=== PATIENT | female | born 1980 | race Caucasian/White ===

== ENCOUNTER 2020-09-04 03:56 | Inpatient (IN) ==
[2020-09-04] MEDS ORDERED: OXYTOCIN 30 UNITS/500 ML BAG IV PRN ×3 (05:34→18:24)
[2020-09-04 06:31] LABS: Hematocrit (blood only) 36.1 % (37-47); Hemoglobin 12.7 g/dL (12.0-16.0); Mean Corpuscular Hemoglobin 32.2 pg (25-34); Mean Corpuscular Hgb Conc 35.2 g/dL (32-36); Mean Corpuscular Volume 91.4 fL (80-100); Mean Platelet Volume 11.7 fL (7.4-10.4); Platelet Count 194 K/uL (130-400); RDW Coefficient of Variation 13.3 % (11.5-14.5); RDW Standard Deviation 44.3 fL (36.4-46.3); Red Blood Count 3.95 M/uL (4.2-5.4)
--- NOTE | 2020-09-04 06:31 | History & Physical Report ---
Date of Service September 04, 2020 Assessment & Plan (1) IUFD at 20 weeks or more of gestation: Admission and Anticipated Discharge Date Admission Date: September 04, 2020 Patient is a 40yowf with iup at 38 1/7 weeks by lmp and consistent with third trimester ultrasound who presents to labor and delivery with decreased FM. IUFD confirmed by formal ultrasound and M-mode. This is the patient's first with this new FOB. Other than AMA, no significant risk factors for IUFD--however, incomplete testing in (no gtt, no rpr, hepb, hiv, etc). Explained the diagnosis to the patient and her FOB. Her NM is here as well. Discussed evaluation for cause including amnio for genetics, genetics with placental tissues, placental evaluation, autopsy. Patient declines amnio at this point and is considering other options. Discussed that complete w/u may reveal a cause, but that frequently, no cause is ascertained. Patient and fob express understanding of this. Cervix is unfavorable, so plan cytotec for ripening and then pitocin and arom as indicated. Patient desires epidural for pain management. Appropriate lab work obtained to complete pnl and to try to determine potential cause--A1C, parvo, rpr, lac, acla, TSH. Her blood sugar on admission is 98. Explained the situation to the best of my ability and questions answered to the best of my ability. History of Present Illness Chief Complaint: decreased movment. Primary Care Provider: NO PCP Patient is a 40yowf with lmp of 12/12/19 for edc of 12/18/20. Patient has been cared for by a nurse child care attendant school for this and planned a home delivery. She presented to the hospital tonight, unannounced, noting decreased movement. She notes the last time she felt the baby move was around 7:30- 8pm last night. She had not really noted decreased movement until Sat. She notes baby moving fine on Saturday. Was very busy on Saturday and noted some movement. Went to bed and woke up about MN. Tried everything she could think of to get the baby to move and nothing worked and she came to the hospital. Per her report , the has been straight forward. She is ama. No genetic testing. US done at [facility] on 05/20 and s=d, all visualized but the spine suboptimally seen, cord insertion suboptimally seen, nose/lips suboptimally seen. efw 60%. limited anatomy as multiple images could not be obtained due to position. f/u recommended but not obtained. PNR available. Blood type B+, ab-, ua nl, cbc nl. Patient and nmw noted that there was "an issues with the blood tubes" and the rest of the lab work was not done. they decided not to redraw as very low risk for other labs being abnl. Patient declined gtt at 22 week. She notes that at about 23 weeks she did fingerstick blood sugars about 30 min after meals and remembers them being in about the 110s. Did not have any testing for diabetes in this . On history there is no hx of VTE, clots, clotting d/o, congenital abnl or chromosomal abnl. There is no maternal DM, VTE, HTN, epilepsy, heart disease. Patient declines tobacco , etoh drug use. Patient has hx of one early miscarriage and two vaginal deliveries. she notes no previous associated issues. Patient denies any hx of illness in the . she has had some spotting after intercourse in the but no other bleeding. Denies bleeding and lof at this point. Notes intermittent contractions . Patient notes she has taken lexapro in the , but has not taken for 2-3 months. Allergies Allergy/AdvReac Type Severity Reaction Status Date / Time No Known Allergies Allergy Unverified 02/08/14 02:01 Home Medications Medication Instructions Recorded Confirmed Type escitalopram oxalate 20 mg tablet 20 mg PO DAILY #90 tab 01/19/20 Rx Patient History Medical History Depression with anxiety Eczema Migraine headache Surgical History No pertinent past surgical history Family History Grandfather (Maternal) Colorectal cancer Grandmother (Maternal) Diabetes Uterine cancer Social History Smoking Status: Never smoker Hx Alcohol Use: Yes (social) Hx Substance Use: No marital status: current occupational status: employed OB History g1--02/04, , hospital, female 8#8oz, 39 4/7 G2--12/07--sab G3--09/07, , [place] breech, home delivery, 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 Subsequent testing in negative. hx of abnl pap and colpo in about 2009, has had nl pap since , but cannot remember her last pap. Review of Systems All systems reviewed & are unremarkable except as noted in HPI & below Physical Exam Constitutional: WD/WN, vitals as above Neck: trachea midline, no thyromegaly Respiratory: normal respiratory effort, lungs clear to auscultation Cardiovascular: RRR, no murmur, no edema Gastrointestinal (Abdomen): soft, gravid, nt Neurologic: patellar DTR's 2+ bilat, sensation intact Psychiatric: A+Ox3, euthymic affect Genitourinary: cx--07/18/-3/mid/mod toco--not traced yet efm--unable to obtain US--no heart motion noted on formal ultrasound Results & Data ([facility]) Vital Signs (Past 12 Hours) Vital Signs Pulse BP Pulse Ox 09/04/20 04:53 93 H 141/89 H 09/04/20 04:29 91 H 99 09/04/20 04:19 94 H 98 Code Status & VTE Plan VTE Prophylaxis Plan VTE Prophylaxis will be ordered: No Coding Level of Care Code None Diagnoses IUFD at 20 weeks or more of gestation O36.4XX0
[2020-09-04] MEDS: LACTATED RINGER'S 1,000 ML IV PRN ×3 (07:45→17:08)
[2020-09-04] MEDS ORDERED: ePHEDrine sulfate 50 MG/ML AMP ONE (08:07)
[2020-09-04] MEDS ORDERED: SODIUM CHLORIDE 0.9% INJ 10 ML VIAL ONE (08:07)
[2020-09-04] MEDS ORDERED: BUPIVACAINE 0.25% 30 ML VIAL ONE (08:08)
[2020-09-04] MEDS ORDERED: fentaNYL citrate 100 MCG/2 ML VIAL ONE (08:08)
[2020-09-04] MEDS ORDERED: fentaNYL 2MCG/ML ROPIVACAINE 1.25MG/ML 100 ML BAG EPI ONE (08:08)
--- NOTE | 2020-09-04 08:08 | Ultrasound Report ---
ULTRASOUND LIMITED CLINICAL HISTORY: Decreased movement. Reportedly 38 weeks . COMPARISON STUDY: No priors. FINDINGS: Portable real-time, grayscale, and color Doppler sonography was performed to assess decreas ed movement. The ordering physician was present during the examination. There is a single intra uterine gestation in cephalic position. No movement was seen and no cardiac activity is identif ied. Findings are consistent with demise. The placenta is anterior. Only trace amniotic fluid i s identified. IMPRESSION: Findings are consistent with demise. Electronically signed by: Cooper Villatoro M.D. 09/04/2020 8:07 AM
--- NOTE | 2020-09-04 08:56 | Anesthesiology Consultation ---
Date of Service September 04, 2020 Assessment & Plan Chart Review Chart Review: Acceptable Risk for Labor Epidural Consults Requested none History Height/Weight Height: 5 ft 4 in Weight: 98.43 kg Allergies Allergy/AdvReac Type Severity Reaction Status Date / Time No Known Allergies Allergy Unverified 02/08/14 02:01 Medications Home Medications Medication Instructions Recorded Confirmed Last Taken escitalopram oxalate 20 mg tablet 20 mg PO DAILY #90 tab 01/19/20 Unknown Active Medications Generic Name Dose Route Start Last Admin Trade Name Freq PRN Reason Stop Dose Admin Lactated Ringer's 1,000 mls @ 125 mls/hr 09/04/20 05:34 09/04/20 08:00 Lr IV 09/06/20 05:33 999 mls/hr .Q8H PRN Infusion L&D Protocol Protocol Oxytocin 30 units in 500 mls @ 1 mls/hr 09/04/20 07:03 09/04/20 08:10 Pitocin IV 09/06/20 07:02 0.06 units/hr .Q24H PRN 1 mls/hr Labor Induction/Augmentation Administration Protocol 0.06 UNITS/HR Past Medical History Medical History Depression with anxiety Eczema Migraine headache Past Family History Family History Grandfather (Maternal) Colorectal cancer Grandmother (Maternal) Diabetes Uterine cancer Past Surgical History Surgical History No pertinent past surgical history Social History Smoking Status: Never smoker Do You Dip or Chew Tobacco: No Hx Alcohol Use: No Hx Substance Use: No substance use type: does not use Physical Exam Vital Signs Last Vital Signs Temp 36.7 C 09/04/20 08:18 Pulse 112 H 09/04/20 08:53 Resp 18 09/04/20 08:18 BP 127/79 09/04/20 08:53 Pulse Ox 100 09/04/20 08:53 Testing Laboratory Results 09/04/20 05:57 Blood Type B Positive 09/04/20 05:57 Antibody Screen NEGATIVE 09/04/20 05:57 09/04/20 06:07 POC Glucose 98
[2020-09-04] MEDS ORDERED: miSOPROStoL 25 MCG TAB PV SCH (09:00)
[2020-09-04] MEDS ORDERED: diphenhydrAMINE 50 MG/ML VIAL IV PRN (09:00)
[2020-09-04] MEDS ORDERED: ePHEDrine sulfate 50 MG/ML AMP IV PRN (09:00)
[2020-09-04] MEDS ORDERED: fentaNYL 2MCG/ML ROPIVACAINE 1.25MG/ML 100 ML BAG EPI PRN (09:00)
[2020-09-04] MEDS ORDERED: NALOXONE HCL 0.4 MG/1 ML VIAL/CARP IV PRN (09:00)
[2020-09-04] MEDS ORDERED: NALOXONE HCL 1 MG in SODIUM CHLORIDE 0.9% 1000ML 1,000 ML IV PRN (09:00)
[2020-09-04 11:36] LABS: Hepatitis B Surf Ag Rflx Conf Neg (Neg); Rubella IgG Antibody Immune (Immune)
--- NOTE | 2020-09-04 11:57 | Labor Progress Brief Note ---
Date of Service September 04, 2020 Subjective comfortable with epidural Assessment & Plan (1) IUFD at 20 weeks or more of gestation: Admission and Anticipated Discharge Date Admission Date: September 04, 2020 continue current management. Patient tolerating well. Physical Exam Constitutional: WD/WN, vitals as above Psychiatric: A+Ox3, euthymic affect Genitourinary: cx--/50/-2 attempt at arom--small amount of clear fluid toco-q3-4, pit at 13 Results & Data ([facility]) Vital Signs (Past 12 Hours) Vital Signs Temp Pulse Resp BP Pulse Ox 09/04/20 11:53 107 H 99 09/04/20 11:48 81 99 09/04/20 11:47 93 H 123/80 09/04/20 11:43 95 H 99 09/04/20 11:38 97 H 99 09/04/20 11:33 106 H 98 09/04/20 11:28 90 98 09/04/20 11:23 96 H 99 09/04/20 11:18 83 121/78 99 09/04/20 11:13 90 99 09/04/20 11:08 96 H 99 09/04/20 11:03 89 99 09/04/20 10:58 84 98 09/04/20 10:53 85 97 09/04/20 10:48 97 H 99 09/04/20 10:47 87 118/74 09/04/20 10:43 86 97 09/04/20 10:38 90 99 09/04/20 10:33 82 98 09/04/20 10:28 77 98 09/04/20 10:23 97 H 97 09/04/20 10:18 129 H 100 09/04/20 10:17 90 140/100 09/04/20 10:13 93 H 99 09/04/20 10:08 81 100 09/04/20 10:03 91 H 99 09/04/20 09:58 88 100 09/04/20 09:53 91 H 99 09/04/20 09:48 96 H 121/70 98 09/04/20 09:43 96 H 99 09/04/20 09:38 88 100 09/04/20 09:33 105 H 100 09/04/20 09:28 89 99 09/04/20 09:23 86 98 09/04/20 09:18 105 H 99 09/04/20 09:16 88 130/68 09/04/20 09:13 106 H 99 09/04/20 09:11 99 H 125/65 09/04/20 09:08 103 H 100 09/04/20 09:06 99 H 129/73 09/04/20 09:03 107 H 98 09/04/20 09:02 116 H 137/76 09/04/20 08:58 105 H 99 09/04/20 08:56 103 H 133/80 09/04/20 08:53 112 H 127/79 100 09/04/20 08:51 121 H 135/86 09/04/20 08:50 108 H 134/82 09/04/20 08:48 101 H 99 09/04/20 08:47 110 H 120/76 09/04/20 08:44 90 126/78 09/04/20 08:43 100 H 100 09/04/20 08:41 94 H 125/80 09/04/20 08:38 97 H 100 09/04/20 08:33 101 H 100 09/04/20 08:28 94 H 100 09/04/20 08:23 87 100 09/04/20 08:18 36.7 C 93 H 18 143/87 H 100 09/04/20 08:00 18 09/04/20 06:13 36.7 C 18 09/04/20 04:53 93 H 141/89 H 09/04/20 04:29 91 H 99 09/04/20 04:19 94 H 98 Coding Level of Care Code None Diagnoses IUFD at 20 weeks or more of gestation O36.4XX0
[2020-09-04] MEDS ORDERED: ACETAMINOPHEN 325 MG TAB PO ONE ×2 (12:11→16:12)
[2020-09-04] MEDS ORDERED: ACETAMINOPHEN 325 MG TAB ONE ×2 (12:16→16:10)
--- NOTE | 2020-09-04 13:12 | Labor Progress Brief Note ---
Date of Service September 04, 2020 Subjective still fairly comfortable Assessment & Plan (1) IUFD at 20 weeks or more of gestation: Admission and Anticipated Discharge Date Admission Date: September 04, 2020 continue current management. oligo noted on my ultrasound. Patient is not wanting to do an autopsy. she is agreeable to placenta studies and placental tissue to try to obtain chromosomes. Physical Exam Constitutional: WD/WN, vitals as above Psychiatric: A+Ox3, euthymic affect Genitourinary: cx--4/75/-2 toco--q2-4min, pit at 13 minimal fluid noted, attempt at another arom, no fluid noted US--cephalic, essentially no fluid noted on ultrasound Results & Data ([facility]) Vital Signs (Past 12 Hours) Vital Signs Temp Pulse Resp BP Pulse Ox 09/04/20 13:03 101 H 98 09/04/20 12:58 100 H 98 09/04/20 12:53 84 97 09/04/20 12:48 97 H 98 09/04/20 12:47 116 H 144/97 H 09/04/20 12:43 93 H 98 09/04/20 12:38 89 98 09/04/20 12:33 83 99 09/04/20 12:28 86 97 09/04/20 12:23 86 97 09/04/20 12:18 93 H 99 09/04/20 12:17 88 120/78 09/04/20 12:15 18 09/04/20 12:13 94 H 98 09/04/20 12:08 85 98 09/04/20 12:04 37.3 C 18 09/04/20 12:03 97 H 99 09/04/20 11:58 95 H 100 09/04/20 11:53 107 H 99 09/04/20 11:48 81 99 09/04/20 11:47 93 H 123/80 09/04/20 11:43 95 H 99 09/04/20 11:38 97 H 99 09/04/20 11:33 106 H 98 09/04/20 11:28 90 98 09/04/20 11:23 96 H 99 09/04/20 11:18 83 121/78 99 09/04/20 11:15 18 09/04/20 11:13 90 99 09/04/20 11:08 96 H 99 09/04/20 11:03 89 99 14/21 10:58 84 98 14/21 10:53 85 97 09/04/21 10:48 97 H 99 14/21 10:47 87 118/74 09/04/20 10:43 86 97 09/04/21 10:38 90 99 21 10:33 82 98 14/21 10:28 77 98 09/04/20 10:23 97 H 97 09/04/20 10:18 129 H 100 09/04/20 10:17 90 140/100 09/04/20 10:15 18 09/04/20 10:13 93 H 99 09/04/20 10:08 81 100 09/04/20 10:03 91 H 99 09/04/20 09:58 88 100 09/04/20 09:53 91 H 99 09/04/20 09:48 96 H 121/70 98 09/04/20 09:43 96 H 99 09/04/20 09:38 88 100 09/04/20 09:33 105 H 100 09/04/20 09:28 89 99 09/04/20 09:23 86 98 09/04/20 09:18 105 H 99 09/04/20 09:16 88 130/68 09/04/20 09:13 106 H 99 09/04/20 09:11 99 H 125/65 09/04/20 09:08 103 H 100 09/04/20 09:06 99 H 129/73 09/04/20 09:03 107 H 98 09/04/20 09:02 116 H 137/76 09/04/20 08:58 105 H 99 09/04/20 08:56 103 H 133/80 09/04/20 08:53 112 H 127/79 100 09/04/20 08:51 121 H 135/86 14 08:50 108 H 134/82 09/04/20 08:48 101 H 99 09/04/20 08:47 110 H 120/76 21 08:44 90 126/78 09/04/20 08:43 100 H 100 1421 08:41 94 H 125/80 14/21 08:38 97 H 100 1421 08:33 101 H 100 09/04/20 08:28 94 H 100 09/04/20 08:23 87 100 09/04/20 08:18 36.7 C 93 H 18 143/87 H 100 09/04/20 08:00 18 09/04/20 06:13 36.7 C 18 09/04/20 04:53 93 H 141/89 H 09/04/20 04:29 91 H 99 09/04/20 04:19 94 H 98 Coding Level of Care Code None Diagnoses IUFD at 20 weeks or more of gestation O36.4XX0
[2020-09-04] MEDS ORDERED: ONDANSETRON INJ 2 MG/ML 2 ML VIAL IV PRN (14:19)
[2020-09-04 16:08] LABS: Amphetamines+Metham, Urine Neg (Neg); Barbiturates, Urine Neg (Neg); Benzodiazepine, Urine Neg (Neg); Cocaine, Urine Neg (Neg); MDMA (Ecstacy), Urine Neg (Neg); Methadone, Urine Neg (Neg); Opiate, Urine Neg (Neg); Phencyclidine, Urine Neg (Neg)
--- NOTE | 2020-09-04 16:12 | Labor Progress Brief Note ---
Date of Service September 04, 2020 Subjective comfortable, grieving appropriately Assessment & Plan (1) IUFD at 20 weeks or more of gestation: Admission and Anticipated Discharge Date Admission Date: September 04, 2020 continue current management. anticipate vaginal delivery. Have been given permission to obtain placenta tissue for chromosomal analysis. Declines tissue or autopsy. Elsa does not want to hold the baby immediately. Plan for me to clamp and cut the cord. Take the baby to warmer, dry and then father desires to hold. Physical Exam Constitutional: WD/WN, vitals as above Psychiatric: A+Ox3, euthymic affect Genitourinary: cx--6-7/100/-1 toco--q2-3min, pit at 15 Results & Data ([facility]) Vital Signs (Past 12 Hours) Vital Signs Temp Pulse Resp BP Pulse Ox 09/04/20 16:03 92 H 99 09/04/20 15:59 93 H 93 09/04/20 15:58 91 H 95 09/04/20 15:53 93 H 100 09/04/20 15:48 92 H 99 09/04/20 15:47 82 133/78 09/04/20 15:43 87 99 09/04/20 15:38 95 H 99 09/04/20 15:34 97 H 90 09/04/20 15:33 89 100 09/04/20 15:28 102 H 100 09/04/20 15:23 84 100 09/04/20 15:18 91 H 131/84 99 09/04/20 15:17 91 H 133/83 09/04/20 15:13 97 H 99 09/04/20 15:08 92 H 99 09/04/20 15:03 99 H 99 09/04/20 14:58 88 98 09/04/20 14:53 86 100 09/04/20 14:48 82 98 09/04/20 14:47 86 111/66 09/04/20 14:43 79 99 09/04/20 14:38 86 99 09/04/20 14:33 81 98 09/04/20 14:28 87 99 09/04/20 14:23 82 99 09/04/20 14:18 93 H 98 09/04/20 14:17 89 130/82 09/04/20 14:13 91 H 97 09/04/20 14:08 83 99 09/04/20 14:03 83 100 09/04/20 13:58 81 99 09/04/20 13:53 80 99 09/04/20 13:48 75 120/77 99 09/04/20 13:43 84 98 09/04/20 13:38 81 99 09/04/20 13:33 86 98 09/04/20 13:28 80 98 09/04/20 13:23 83 98 09/04/20 13:18 82 97 09/04/20 13:17 82 124/78 09/04/20 13:13 81 100 09/04/20 13:08 85 98 09/04/20 13:03 101 H 98 09/04/20 12:58 100 H 98 09/04/20 12:53 84 97 09/04/20 12:48 97 H 98 09/04/20 12:47 116 H 144/97 H 09/04/20 12:43 93 H 98 09/04/20 12:38 89 98 09/04/20 12:33 83 99 09/04/20 12:28 86 97 09/04/20 12:23 86 97 09/04/20 12:18 93 H 99 09/04/20 12:17 88 120/78 09/04/20 12:15 18 09/04/20 12:13 94 H 98 09/04/20 12:08 85 98 09/04/20 12:04 37.3 C 18 09/04/20 12:03 97 H 99 09/04/20 11:58 95 H 100 09/04/20 11:53 107 H 99 09/04/20 11:48 81 99 09/04/20 11:47 93 H 123/80 09/04/20 11:43 95 H 99 09/04/20 11:38 97 H 99 09/04/20 11:33 106 H 98 09/04/20 11:28 90 98 09/04/20 11:23 96 H 99 09/04/20 11:18 83 121/78 99 09/04/20 11:15 18 09/04/20 11:13 90 99 09/04/20 11:08 96 H 99 09/04/20 11:03 89 99 09/04/20 10:58 84 98 09/04/20 10:53 85 97 09/04/20 10:48 97 H 99 09/04/20 10:47 87 118/74 09/04/20 10:43 86 97 09/04/20 10:38 90 99 09/04/20 10:33 82 98 09/04/20 10:28 77 98 09/04/20 10:23 97 H 97 09/04/20 10:18 129 H 100 09/04/20 10:17 90 140/100 09/04/20 10:15 18 09/04/20 10:13 93 H 99 09/04/20 10:08 81 100 09/04/20 10:03 91 H 99 09/04/20 09:58 88 100 09/04/20 09:53 91 H 99 09/04/20 09:48 96 H 121/70 98 09/04/20 09:43 96 H 99 09/04/20 09:38 88 100 09/04/20 09:33 105 H 100 09/04/20 09:28 89 99 09/04/20 09:23 86 98 09/04/20 09:18 105 H 99 09/04/20 09:16 88 130/68 09/04/20 09:13 106 H 99 09/04/20 09:11 99 H 125/65 09/04/20 09:08 103 H 100 09/04/20 09:06 99 H 129/73 09/04/20 09:03 107 H 98 09/04/20 09:02 116 H 137/76 09/04/20 08:58 105 H 99 09/04/20 08:56 103 H 133/80 09/04/20 08:53 112 H 127/79 100 09/04/20 08:51 121 H 135/86 09/04/20 08:50 108 H 134/82 09/04/20 08:48 101 H 99 09/04/20 08:47 110 H 120/76 09/04/20 08:44 90 126/78 09/04/20 08:43 100 H 100 09/04/20 08:41 94 H 125/80 09/04/20 08:38 97 H 100 09/04/20 08:33 101 H 100 09/04/20 08:28 94 H 100 09/04/20 08:23 87 100 09/04/20 08:18 36.7 C 93 H 18 143/87 H 100 09/04/20 08:00 18 09/04/20 06:13 36.7 C 18 09/04/20 04:53 93 H 141/89 H 09/04/20 04:29 91 H 99 09/04/20 04:19 94 H 98 Coding Level of Care Code None Diagnoses IUFD at 20 weeks or more of gestation O36.4XX0
[2020-09-04] MEDS ORDERED: CARBOPROST TROMETHAMINE 250 MCG/ML AMPUL ONE (17:07)
--- NOTE | 2020-09-04 17:32 | Delivery Summary ---
Vaginal Delivery Summary Date of Service September 04, 2020 Pre-operative Diagnosis: at 38 weeks iufd oligohydramnios Post-operative Diagnosis: same Procedure: pitocin induction arom for minimal fluid EBL: 400cc Anesthesia: epidural Procedure: The patient pushed for two contractions to deliver a nonviable female infant in axel position. There was no nuchal cord. The rest of the infant was then delivered without difficulty. Cord was clamped and cut at on the perineum. Placenta delivered spontaneous, intact with a three vessel cord. Cervix/sulci/rectum/perineum were intact. There was no laceration. Hemostasis obtained with dilute pitocin and fundal massage and IM hemabate. Apgars were 0/0. Mother physically well at the end of the delivery. The baby was taken to the warmer where she was wrapped and her father held her. When her towels were changed, it was noted that genitalia were female. 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 The back of the neck may have been fluid filled, difficult to tell that it was not postmortum. There was some peeling of the skin of the lips but for the most part the skin was still intact. the anterior fontanelle was open and flat. Color consistent with recent demise, no modeling or bruising noted. Limbs appeared normal, not misshapen, equal in length. No clubbing of the feet noted. Vaginal Delivery Summary [facility] ([place], [place]) Vaginal Delivery Charge Delivery Type Details: [facility]
[2020-09-04] MEDS ORDERED: ACETAMINOPHEN W/CODEINE #3 1 TAB PO PRN (18:24)
[2020-09-04] MEDS ORDERED: HYDROCORTISONE ACETATE 25 MG SUPP PR PRN (18:24)
[2020-09-04] MEDS ORDERED: BENZOCAINE 20% AER SPR 82.5 GM CAN EXT PRN (18:24)
[2020-09-04] MEDS ORDERED: DIPHTHERIA/TETANUS/PERTUSSIS 0.5 ML SYR/VIAL IM ONE (18:24)
[2020-09-04] MEDS ORDERED: CARBOPROST TROMETHAMINE 250 MCG/ML AMPUL IM ONE (18:24)
[2020-09-04] MEDS ORDERED: bisacodyL 10 MG SUPP PR PRN (18:24)
[2020-09-04] MEDS ORDERED: IBUPROFEN 600 MG TAB PO PRN (18:24)
[2020-09-04] MEDS ORDERED: SUPERCREAM 0.870% 15 GM JAR EXT PRN (18:24)
[2020-09-04] MEDS ORDERED: ACETAMINOPHEN 325 MG TAB PO PRN (18:24)
[2020-09-04] MEDS ORDERED: oxyCODONE/ACETAMINOPHEN 5mg/325mg TAB PO PRN (18:24)
--- NOTE | 2020-09-04 18:30 | Anesthesiology Progress Note ---
Date of Service September 04, 2020 Anesthesia Post Procedure Vital Signs Vital Signs: Temp Pulse Resp BP Pulse Ox 09/04/20 18:17 89 132/70 09/04/20 18:02 96 H 129/70 09/04/20 17:47 94 H 143/88 H 09/04/20 17:16 94 H 136/72 84 L 09/04/20 17:13 105 H 98 09/04/20 17:12 106 H 155/79 H 09/04/20 17:10 104 H 163/84 H 09/04/20 17:08 107 H 150/84 H 99 09/04/20 17:06 120 H 149/87 H 09/04/20 17:03 116 H 99 09/04/20 16:58 113 H 99 09/04/20 16:53 127 H 100 09/04/20 16:48 110 H 99 09/04/20 16:47 115 H 143/83 H 09/04/20 16:43 97 H 100 09/04/20 16:38 116 H 100 09/04/20 16:33 107 H 98 09/04/20 16:28 100 H 100 09/04/20 16:25 36.9 C 18 09/04/20 16:23 96 H 100 09/04/20 16:19 89 92 09/04/20 16:18 87 123/79 100 09/04/20 16:13 97 H 100 09/04/20 16:08 87 99 09/04/20 16:03 92 H 99 09/04/20 15:59 93 H 93 09/04/20 15:58 91 H 95 09/04/20 15:53 93 H 100 09/04/20 15:48 92 H 99 09/04/20 15:47 82 133/78 09/04/20 15:45 18 09/04/20 15:43 87 99 09/04/20 15:38 95 H 99 09/04/20 15:34 97 H 90 09/04/20 15:33 89 100 09/04/20 15:28 102 H 100 09/04/20 15:23 84 100 09/04/20 15:18 91 H 131/84 99 09/04/20 15:17 91 H 133/83 09/04/20 15:15 18 09/04/20 15:13 97 H 99 09/04/20 15:08 92 H 99 09/04/20 15:03 99 H 99 09/04/20 14:58 88 98 09/04/20 14:53 86 100 09/04/20 14:48 82 98 09/04/20 14:47 86 111/66 09/04/20 14:43 79 99 09/04/20 14:38 86 99 09/04/20 14:33 81 98 09/04/20 14:28 87 99 09/04/20 14:23 82 99 09/04/20 14:18 93 H 98 09/04/20 14:17 89 130/82 09/04/20 14:15 18 09/04/20 14:13 91 H 97 09/04/20 14:08 83 99 09/04/20 14:03 83 100 09/04/20 14:00 37.2 C 18 09/04/20 13:58 81 99 09/04/20 13:53 80 99 09/04/20 13:48 75 120/77 99 09/04/20 13:43 84 98 09/04/20 13:38 81 99 09/04/20 13:33 86 98 09/04/20 13:28 80 98 09/04/20 13:23 83 98 09/04/20 13:18 82 97 09/04/20 13:17 82 124/78 09/04/20 13:13 81 100 09/04/20 13:08 85 98 09/04/20 13:03 101 H 98 09/04/20 12:58 100 H 98 09/04/20 12:53 84 97 09/04/20 12:48 97 H 98 09/04/20 12:47 116 H 144/97 H 09/04/20 12:43 93 H 98 09/04/20 12:38 89 98 09/04/20 12:33 83 99 09/04/20 12:28 86 97 09/04/20 12:23 86 97 09/04/20 12:18 93 H 99 09/04/20 12:17 88 120/78 09/04/20 12:15 18 09/04/20 12:13 94 H 98 09/04/20 12:08 85 98 09/04/20 12:04 37.3 C 18 09/04/20 12:03 97 H 99 03/14/21 11:58 95 H 100 /14/21 11:53 107 H 99 14/21 11:48 81 99 03/14/21 11:47 93 H 123/80 09/04/20 11:43 95 H 99 14 11:38 97 H 99 14 11:33 106 H 98 09/04/ 11:28 90 98 14 11:23 96 H 99 09/04/20 11:18 83 121/78 99 14 11:15 18 09/04/20 11:13 90 99 14 11:08 96 H 99 09/04/20 11:03 89 99 09/04/20 10:58 84 98 09/04/20 10:53 85 97 09/04/20 10:48 97 H 99 09/04/20 10:47 87 118/74 09/04/20 10:43 86 97 09/04/20 10:38 90 99 09/04/20 10:33 82 98 09/04/20 10:28 77 98 09/04/20 10:23 97 H 97 09/04/20 10:18 129 H 100 09/04/20 10:17 90 140/100 09/04/20 10:15 18 09/04/20 10:13 93 H 99 09/04/20 10:08 81 100 09/04/20 10:03 91 H 99 09/04/20 09:58 88 100 09/04/20 09:53 91 H 99 09/04/20 09:48 96 H 121/70 98 09/04/20 09:43 96 H 99 09/04/20 09:38 88 100 09/04/20 09:33 105 H 100 09/04/20 09:28 89 99 14/ 09:23 86 98 14/21 09:18 105 H 99 14/21 09:16 88 130/68 14 09:13 106 H 99 14 09:11 99 H 125/65 14/ 09:08 103 H 100 09/04/20 09:06 99 H 129/73 14/ 09:03 107 H 98 09/04/20 09:02 116 H 137/76 09/04/20 08:58 105 H 99 09/04/20 08:56 103 H 133/80 09/04/20 08:53 112 H 127/79 100 09/04/20 08:51 121 H 135/86 09/04/20 08:50 108 H 134/82 09/04/20 08:48 101 H 99 09/04/20 08:47 110 H 120/76 09/04/20 08:44 90 126/78 09/04/20 08:43 100 H 100 09/04/20 08:41 94 H 125/80 09/04/20 08:38 97 H 100 09/04/20 08:33 101 H 100 09/04/20 08:28 94 H 100 09/04/20 08:23 87 100 09/04/20 08:18 36.7 C 93 H 18 143/87 H 100 09/04/20 08:00 18 09/04/20 06:13 36.7 C 18 09/04/20 04:53 93 H 141/89 H 09/04/20 04:29 91 H 99 09/04/20 04:19 94 H 98 Pain Intensity Abdomen: Pain Intensity: 0 Transfer of Care Handoff Completed per policy Notes Mental Status: alert / awake / arousable and participated in evaluation Patient Amnestic to Procedure: Yes Nausea / Vomiting: adequately controlled Pain: adequately controlled Airway Patency, RR, SpO2: stable & adequate BP & HR: stable & adequate Hydration State: stable & adequate Anesthetic Complications: no major complications apparent and Pt Satisfied with anesthetic care
--- NOTE | 2020-09-04 19:31 | Communication Note ---
Date of Service: September 04, 2020 head circumference--32cm length 20 in weight 6#1/2 oz, 2739gm Obtaining gross pictures of the baby for the record as per the OB consensus statement on Stillbirth: full frontal, prone, profile, palms. Patient would really like to go home at 12 hours. If all looks well, can be d/c. Will need to f/u in 1-2 weeks with me so we can review labs, path, chromosomes etc.
[2020-09-05] MEDS: DOCUSATE SODIUM 100 MG CAP PO SCH ×2 (03:46→07:34)
[2020-09-05 04:59] LABS: Hematocrit (blood only) 33.6 % (37-47); Hemoglobin 11.7 g/dL (12.0-16.0)
[2020-09-05 06:03] LABS: Estimated Average Glucose 114 mg/dl; Hemoglobin A1C 5.6 % (4.5-5.6)
--- NOTE | 2020-09-05 07:28 | Obstetrical Progress Note ---
Date of Service September 05, 2020 Assessment & Plan (1) Status post vaginal delivery: (2) IUFD at 20 weeks or more of gestation: Patient overall physically doing well. Plan d/c today. Will f/u with me in 1-2 weeks to review data, path and hopefully chromosome analysis. All labs back so far are wnl. Urine tox negative. To call with any concerns. Day #:: 0 Subjective Ambulation: ambulating normally Voiding: no voiding problems Passing Gas:: Yes Diet Tolerance:: regular diet Lochia:: Small Patient is dealing emotionally appropriately. Physical Exam Neck trachea midline, no thyromegaly Psychiatric A+Ox3, euthymic affect Results & Data ([facility]) Vital Signs (Past 12 Hours) Vital Signs Temp Pulse Resp BP 09/05/20 07:20 86 124/61 09/05/20 04:00 98 H 18 110/57 L 09/05/20 03:51 98 H 110/57 L 09/05/20 00:31 36.9 C 18 09/05/20 00:09 88 130/85
[2020-09-05] MEDS ORDERED: ONDANSETRON INJ 2 MG/ML 2 ML VIAL IV ONE (07:38)
[2020-09-05] MEDS ORDERED: PRENATAL VITAMIN 1 TAB PO SCH (08:00)
[2020-09-05] MEDS ORDERED: bisacodyL 5 MG TABEC PO SCH (20:00)
--- NOTE | 2020-09-06 09:57 | Discharge Summary (DS) ---
ADMIT DIAGNOSIS: Intrauterine at 38 weeks with an intrauterine demise. DISCHARGE DIAGNOSIS: Intrauterine at 38 weeks with an intrauterine demise. PROCEDURES: 1. Pitocin augmentation or induction of labor. 2. Amniotomy. 3. Normal spontaneous vaginal delivery. HISTORY OF PRESENT ILLNESS: The patient is a 40-year-old white female 4, para 2-0-1-2, with last menstrual period of 12/12/2019 for an EDC of 09/17/2020. She had been cared for by a lay nurse paving crew foreman for this and planned a home delivery. She presented to the hospital last night, unannounced, noting decreased movement. She notes the last time she felt movement was around 7:30-8:00 p.m. the night prior to admission, she had not really noted decreased movement until Saturday. She noted the baby was moving fine on Saturday. She tried everything they think of to get the baby to move and nothing worked, so she came to the hospital. Per her report, the has been straightforward. She has advanced maternal age. She had no genetic testing. Ultrasound done at [facility] on 05/20 showed size equal to dates, all visualized, but spine, cord insertion site, nose and lips were suboptimally seen. Estimated weight 60%. percentile. Limited anatomy as multiple images cannot be obtained due to position. Followup recommended but not obtained. For the rest of patient's history and physical, please see her history and physical. ASSESSMENT: Unfortunately this was found to be an intrauterine demise at 38 weeks, this was confirmed by formal ultrasound with no M-Mode noted. This is the patient's first with a new FOB. Other than AMA and care with a lay nurse paving crew foreman, no significant risk factors for IUFD. However, incomplete testing throughout . HOSPITAL COURSE: The patient was admitted. The diagnosis was explained to her and the father of the baby. The nurse paving crew foreman was here as well. Discussed evaluation for cause including amnio for genetics, genetics with placental tissue, placental evaluation, autopsy. The patient declined amnio and autopsy. Discussed that complete workup may reveal a cause, but that frequently no cause is ascertained. The patient and father of the baby expressed understanding of this. Initially felt the cervix was a little unfavorable, so a Alonso balloon was attempted to be placed through the cervix, but could not get it. Every time we blew it up, it popped right out of the cervix, so we proceeded with Pitocin augmentation. Appropriate lab work was obtained to complete labs and to try to determine the potential cause including an A1c, parvovirus, RPR, lupus anticoagulant, anticardiolipin antibodies and TSH. Her blood sugar on admission was 98. The patient progressed under Pitocin augmentation. I attempted to do AROM with really no fluid, so a brief bedside ultrasound was done. This again confirmed cephalic presentation as noted in the formal ultrasound to determine no heart motion, but there was essentially no fluid around the baby. The patient progressed to complete-complete and +2 station. She pushed for approximately 2 contractions to deliver a nonviable female infant in HIRA position. There was no nuchal cord. The rest of the was delivered without difficulty. The cord was clamped and cut on the perineum and the was taken to the warmer. Placenta delivered spontaneously intact with a 3-vessel cord. The placenta was calcified, but appeared otherwise normal. The cord insertion site was slightly off of center, but not considered marginal. Cervix, sulci, rectum, and perineum were intact. Hemostasis was obtained with dilute Pitocin, fundal massage and IM Hemabate. Gross examination of the fetus revealed appearance of the face and low set ears to be typical of potentially Down syndrome. The back of the neck may have been fluid-filled, but this was difficult to tell that it was not postmortem. There was some peeling of the skin on the lips, but for the most part, the skin was intact. The anterior fontanelle was open and flat. Color of the fetus was consistent with recent demise with no mottling or bruising noted. The limbs appeared normal, normal in shape and equal in length. No clubbing of the feet was noted. The patient elected Anora of placenta tissue, so a 1 x 1 cm block of the placenta tissue as well as probably 3 cm of umbilical cord was sent for evaluation. The patient's course was uncomplicated. Her bleeding was well controlled. She tolerated a regular diet, ambulated and voided without difficulty. She desired discharge 12 hours after delivery and she was deemed stable for discharge. Her discharge H and H were 11.7 and 33.6. Labs on discharge; her hemoglobin A1c was 5.6. Her TSH was 4.260. Her urine tox was negative. RPR was nonreactive, hepatitis B surface antigen negative, HIV negative, rubella immune. COVID test negative. All other labs are pending at this point. I asked the patient to return to see me in 1-2 weeks so that we could review all of the laboratory work, pathology of the placenta and hopefully the genetic evaluation. She was given our number to call if she had concerns or issues. The patient plans to bank her breast milk at [id number] and was given information to do this. She is planning on having the baby cremated. GLORIA
[2020-09-08 07:51] LABS: B2 Glycoprotein IgA <9 SAU (<=20); B2 Glycoprotein IgG <9 SGU (<=20); B2 Glycoprotein IgM <9 SMU (<=20); Parvovirus IgG 1.6 (<0.9); Parvovirus IgM 0.1 (<0.9); Phosphatidylserine IgG <10 U/mL (<10); Phosphatidylserine IgM <25 U/mL (<25)
== END 2020-09-05 09:30 | disposition home or self-care (01) | DRG 806 ==
LOC: OPB 03:56 → 4S1 04:02